=== PATIENT | male | born 1990 | race Two or more races ===

== ENCOUNTER 2017-02-27 12:14 | Emergency (ER) | payer SELFPAY ==
[~2017-02-27] VITALS: Ht 170.2 cm; Wt 95.3 kg
[2017-02-27 12:24] VITALS: BP 131/84
[2017-02-27] MEDS ORDERED: ONDANSETRON HCL/PF 4 MG/2 ML VIAL ONE (12:32)
[2017-02-27] MEDS ORDERED: ASPIRIN EC 81 MG TABLET.DR PO ONE (12:32)
[2017-02-27] MEDS ORDERED: IV SET PRIMARY PUMP SET 1 EA INFUS.SET MC ONE (12:33)
[2017-02-27] MEDS ORDERED: IV NS 0.9% 0 ML ONE (12:33)
[2017-02-27] MEDS ORDERED: TDAP [DIPH/PERTUSSIS/TET] 0.5 ML VIAL IM ONE ×2 (12:38→13:00)
--- NOTE | 2017-02-27 13:38 | NUR ---
CALLED YOUSUF TO READ XRAY
== END 2017-02-27 14:01 | disposition home or self-care (01) ==
LOC: ER 12:17
DX: S60.511A Abrasion of right hand, initial encounter (principal); F17.200 Nicotine dependence, unspecified, uncomplicated; W26.9XXA Contact with unspecified sharp object(s), initial encounter; Y93.89 Activity, other specified; Y92.89 Other specified places as the place of occurrence of the external cause; Y99.8 Other external cause status
CPT/HCPCS: 73130-TC; 90715; A4606; A6253; J2405; J7030; Z7610